=== PATIENT | male | born 1995 | race Hispanic/Latino ===

== ENCOUNTER 2017-06-04 16:35 | Inpatient (IN) | payer SELFPAY ==
[2017-06-04 17:53] LABS: Anion Gap 13 mmol/L (10-20); BUN (Urea Nitrogen) 10 mg/dL (8.9-20.6); Calc. Creatinine Clearance 0 mL/min (70-130); Calcium 9.1 mg/dL (7.8-10.44); Carbon Dioxide 24 mmol/L (22-29); Chloride 105 mmol/L (98-107); Dilantin 21.7 ug/mL (10.0-20.0); Estimated GFR-MDRD Greater than 90; Glucose 97 mg/dL (70-105); Potassium 4.4 mmol/L (3.5-5.1); Sodium 138 mmol/L (136-145)
[2017-06-04] MEDS ORDERED: Acetaminophen 325 MG TAB PO PRN (18:31)
[2017-06-04] MEDS ORDERED: Bisacodyl 5 MG TAB PO PRN (18:31)
[2017-06-04] MEDS ORDERED: Ondansetron HCl/PF 4 MG/2 ML Vial IVP PRN (18:31)
[2017-06-04] MEDS ORDERED: Acetaminophen 650 MG Suppository PR PRN (18:31)
--- NOTE | 2017-06-04 19:28 | RAD ---
TWO VIEW CHEST 06/04/17 HISTORY: Seizure disorder. Shortness of breath and cough. The lungs are clear. heart and mediastinum are unremarkable. IMPRESSION: No acute lung or chest process identified. POS: [facility]
--- NOTE | 2017-06-04 19:44 | HP ---
PRIMARY CARE PHYSICIAN: Dr. Willem Sandoval. CHIEF COMPLAINT: Seizure. HISTORY OF PRESENT ILLNESS: Mr. Hart is a pleasant 21-year-old gentleman who was seen at [facility] on 06/04/2017 following transfer from the Emergency Room in [place]. He ma inly speaks [place]. One of his family members was the hotel dining room cashier for this encounter. He has a history of seizures since age 17. He reportedly has a seizure almost every 4 months. His l ast seizure was 4 months ago. Previously he was on phenytoin, which he got from [place], was using it at 200 mg 2 times a day. He is currently on phenytoin 200 mg 2 times a day, which he purchased in [place]. Last night, he had a seizure while he was walking to the bathroom around 11:00 p.m. Family member re ports that the seizure was tonic-clonic, lasted at least 10 minutes. It is unclear whether he had an y postictal confusion. This was followed by seizures at 2:00 a.m., 5:00 a.m. and 10:00 a.m. He was therefore taken to the emergency room. He denies any chest pain or shortness of breath. He denies any fevers or chills. He denies any neck pain or neck stiffness. REVIEW OF SYSTEMS: The following complete review of systems was negative, unless otherwise mentioned in the HPI or below: Constitutional: Weight loss or gain, ability to conduct usual activities. Skin: Rash, itching. Eyes: Double vision, pain. ENT/Mouth: Nose bleeding, neck stiffness, pain, tenderness. Cardiovascular: Palpitations, dyspnea on exertion, orthopnea. Respiratory: Shortness of breath, wheezing, cough, hemoptysis, fever or night sweats. Gastrointestinal: Poor appetite, abdominal pain, heartburn, nausea, vomiting, constipation, or diarr hea. Genitourinary: Urgency, frequency, dysuria, nocturia. Musculoskeletal: Pain, swelling. Neurologic/Psychiatric: Anxiety, depression. Allergy/Immunologic: Skin rash, bleeding tendency. PAST MEDICAL HISTORY: Significant for seizure disorder. PAST SURGICAL HISTORY: None. SOCIAL HISTORY: The patient smokes 4 or 5 cigarettes a day. He denies alcohol use or recreational d rug use. FAMILY HISTORY: His father had what appears to be intracranial bleed and seizures. ALLERGIES: No known drug allergies. CURRENT MEDICATIONS: Phenytoin 200 mg 2 times a day. PHYSICAL EXAMINATION: GENERAL: On examination, Mr. Hart is awake and alert, not in acute distress. VITAL SIGNS: Blood pressure is 113/73, pulse is 77, he is breathing at rate of 16, and saturating 10 0% on room air. He is afebrile. EYES: No scleral icterus. No conjunctival pallor. ENT: Moist mucosal membranes, no oropharyngeal erythema or exudates. NECK: Supple, nontender, normal range of movement, trachea is midline. RESPIRATORY: Accessory muscles of breathing are not active. Chest wall movements are symmetric bila terally. Lungs are clear to auscultation without wheeze, rhonchi or crepitations. CARDIOVASCULAR: S1 and S2 are heard, regular. Peripheral pulses palpable. No carotid bruit, no per icardial rub. ABDOMEN: Soft, nontender, bowel sounds heard, no hepatomegaly, no splenomegaly. NEUROLOGIC: Cranial nerves II-XII are intact. Deep tendon reflexes are 2+. MUSCULOSKELETAL: Power is 5/5 in all 4 extremities. SKIN: He has an upper lip laceration. PSYCHIATRIC: Normal mood, normal affect, the patient is oriented to person, place, and time. LABORATORY DATA: Mr. Hart's labs and investigations were reviewed. He had a CT scan of the brain, noncontrast, done at [place], which did not reveal any intracranial hemorrhage or mass effect. He has normal electrolytes, normal creatinine, unremarkable liver profile, leukocytosis with 11,600 whit e cells, normal hemoglobin, neutrophil percentage elevated at 85.8%, normal platelet count, urine scr een presumed positive for barbiturates. Phenytoin level done at this emergency room came back elevated at 21.7. ASSESSMENT AND PLAN: Mr. Hart is a pleasant 21-year-old gentleman who was seen at [facility] on 06/04[facility]2017. His problem list includes: 1. Seizures: He has a known history of seizure disorder. He reports that he is taking medications regularly. His phenytoin level is elevated here. However, this was preceded by administration of 10 00 mg of phenytoin at [place] [facility]. They do not have the facilities to check phenytoin l evel at [place]. He also received Keppra. I will increase his phenytoin dose to 300 mg 2 times a day, since the seizures are unlikely to be from phenytoin toxicity. 2. Leukocytosis: No fevers, no signs of infection on review of systems. We will check chest x-ray and urinalysis. 3. Tobacco abuse: The patient counseled regarding tobacco cessation, we will start nicotine replace ment therapy. Neurology Service will be consulted for opinion and help with management. Many thanks for allowing me to participate in your patient's care. Please feel free to contact me wi th any questions or concerns. LEVEL OF RISK: Moderate. LEVEL OF COMPLEXITY: Moderate.
[2017-06-04] MEDS ORDERED: Nicotine 14 MG PATCH TD SCH (20:00)
[2017-06-04 20:17] VITALS: BMI 23.8
[2017-06-04] MEDS ORDERED: FLU VACC QS2017-18 36 mo. & older 0.5 ML SYRINGE IM ONE (21:00)
--- NOTE | 2017-06-05 00:16 | CON ---
DATE OF CONSULTATION: 06/04/2017 CHIEF COMPLAINT: Seizures. HISTORY OF PRESENT ILLNESS: Patient is a 21-year-old right-handed gentleman who was transferred here from another emergency room. His brother was able to help and give me some medical information. The patient has had a history of seizures since teenage years. He had seizure yesterday morning and then he had another seizure at night and at 3:30 this morning and 5 a.m. this morning and a fifth seizure this morning around 10:00 and was taken to the emergency room. He has been on phenytoin 200 mg 2 tablets p.o. b.i.d. and this prescription is being given by Dr. Garza and his last seizure was about 4 months ago. Due to recurrent seizures, family is concerned and brought him to the hospital. He had tongue biting yesterday during his seizure in the afternoon and following that, he fell down and hurt his face on the left side. Patient has generalized tonic clonic seizures and has postictal period with some confusion. PAST MEDICAL HISTORY: Otherwise, healthy except for seizure disorder. PAST SURGICAL HISTORY: None. SOCIAL HISTORY: Lives with his family. He smokes occasionally. No alcohol use or drug use. FAMILY HISTORY: His father has had seizures for a number of years and stopped having seizures about 10 years ago. No other family members have seizures. ALLERGIES: No known drug allergies. CURRENT MEDICATIONS: He takes phenytoin sodium 200 mg b.i.d. REVIEW OF SYSTEMS: General: Positive for facial and tongue injury and injury around his mouth. Dermatologic: Negative for rash or itching. Ophthalmologic : No double vision or vision problems. Neurologic: Positive for seizures. Cardiac: Negative for any chest pain or palpitations. Pulmonary: Negative for shortness of breath. LABORATORY DATA: Sodium 138, potassium 4.4, chloride 105, bicarbonate 24, anion gap 13, BUN 10, creatinine 0.90, glucose 97, calcium 9.1. Toxicology report shows serum phenytoin, which was general phenytoin level which was at 21.7. The rest of the labs were performed at the outside facility and he did have a chest x-ray here which was negative and I have also reviewed some of the available records from the outside hospital and these were in his records from the outside hospital. PHYSICAL EXAMINATION: VITAL SIGNS: His blood pressure was 103/66, temperature 98.6, pulse 66, O2 sats 99. GENERAL APPEARANCE: He has lip injury and evidence of bleeding in the left upper lip and left side of the face appears swollen. He is well-built, well- nourished young man who is very pleasant. CHEST: Clear vesicular breathing. CARDIOVASCULAR: S1, S2 heard, no murmurs. Carotids clear. ABDOMEN: Soft, nontender, no organomegaly noted. NEUROLOGICAL: Higher intellectual functions, normal orientation to time, place , person appropriate conversation and cranial nerves II-XII normal. Normal extraocular movements and normal pupils 2 mm. Fundus exam normal. Normal sensation of face bilaterally. Tongue midline, no atrophy noted. No facial asymmetry is noted. Motor examination: Bulk normal, tone normal, strength 5/5 throughout in the iliopsoas, hamstrings, quadriceps, ankle dorsiflexion, plantar flexion, deltoid, biceps, triceps, wrist extension and flexion bilaterally and deep tendon reflexes 2+ throughout. SENSORY: Normal to touch, pinprick, proprioception, vibration, and temperature bilaterally. CEREBELLAR: Normal fndiks-de-vrdl, zfas-jn-mild. IMPRESSION: Patient is a 21-year-old young man with history of known seizure disorder since a younge age. He has positive family history of seizure disorder in his father. At this time, he comes in with multiple seizures over the last 24-hour period. Etiology of these seizures is not clear to me. Patient had a normal neurological examination. He is being tested for possible infection and other medical issues which can contribute to seizures. His normal seizure frequency is once every 4 months and it is important to optimize his medication regimen and also understand why there is a sudden increase in frequency of seizures. RECOMMENDATIONS: Start patient on Keppra 500 mg b.i.d. and give this patient slightly lower dose of phenytoin. His phenytoin level is at 21, ideally we should try to get a free phenytoin level and at this time, I would like to continue his current dosage and hopefully, we can stabilize this young man. I will request MRI Brain to understand why there is a sudden increase in his seizures. Thank you and I will follow up with you on this case. [facility]
[2017-06-05 05:24] LABS: #Basophils 0.1 thou/uL (0.0-0.2); #Eosinphils 0.2 thou/uL (0.0-0.7); #Lymphocytes 1.9 thou/uL (1.20-3.40); #Monocytes 0.6 thou/uL (0.11-0.59); #Neutrophils 3.8 thou/uL (1.40-6.50); %Basophils 0.9 % (0.0-1.0); %Eosinophils 3.1 % (0.0-10.0); %Monocytes 8.6 % (0.0-10.0); %Neutrophils 58.5 % (42.0-75.0); Hemoglobin 15.3 g/dL (14.0-18.0); Mean Corpuscular HGB CONC 32.9 g/dL (32.0-36.0); Mean Corpuscular Hemoglobin 32.1 pg (27.0-31.0); Mean Corpuscular Volume 97.6 fl (80.0-94.0); Mean Platelet Volume 8.5 fL (7.4-10.4); Platelet Count 163 thou/uL (130-400); RBC Distribution Width 11.5 % (11.5-14.5); Red Blood Cell (RBC) Count 4.77 mill/uL (4.70-6.10); White Blood Cell (WBC) Count 6.4 thou/uL (4.8-10.8)
[2017-06-05 05:47] LABS: Anion Gap 11 mmol/L (10-20); BUN (Urea Nitrogen) 10 mg/dL (8.9-20.6); Calc. Creatinine Clearance 123 mL/min (70-130); Calcium 9.3 mg/dL (7.8-10.44); Carbon Dioxide 26 mmol/L (22-29); Chloride 106 mmol/L (98-107); Estimated GFR-MDRD Greater than 90; Glucose 94 mg/dL (70-105); Potassium 3.6 mmol/L (3.5-5.1); Sodium 139 mmol/L (136-145)
[2017-06-05] MEDS ORDERED: Enoxaparin Sodium 40 MG/0.4 ML SYRINGE SC SCH (09:00)
[2017-06-05 11:22] LABS: Bilirubin Negative (Negative); Blood, Urine Negative (Negative); Clarity CLEAR (Clear); Glucose, Urine (Dipstick) Negative (Negative); Leukocyte Negative (Negative); Nitrite Negative (Negative); Protein, Urine (Dipstick) Negative (Neg-Trace); Urobilinogen 0.2 mg/dL (0.2-1.0); pH, Urine 5.5 (5.0-9.0)
--- NOTE | 2017-06-05 11:44 | MRI ---
MRI BRAIN WITH AND WITHOUT GADOLINIUM CONTRAST: HISTORY: Seizures. FINDINGS: There is no evidence of acute intracranial hemorrhage or infarct. The ventricles appear normal in si ze, shape, and position. There is no mass effect, shift of midline structures, or abnormal areas of contrast enhancement. Hippocampal areas are symmetric. Mucosal thickening and a small amount of fluid are apparent within the left maxillary sinus. IMPRESSION: 1. No acute intracranial abnormalities are demonstrated. 2. Left maxillary sinusitis. POS: [facility]
--- NOTE | 2017-06-05 11:45 | PDOC.PN ---
- Subjective Encounter Start Date: 06/05/17 Encounter Start Time: 07:00 Pt seen for followup re: seizure. No complaints today. No recurrence of seizures. - Objective MAR Reviewed: Yes Vital Signs & Weight: Vital Signs (12 hours) Temp Pulse Resp BP Pulse Ox 06/05/17 11:37 98.2 F 70 16 110/48 L 96 06/05/17 08:00 97.9 F 62 16 98 06/05/17 07:46 97.9 F 62 16 100/57 L 98 06/05/17 04:00 97.7 F 63 16 98/52 L 96 06/04/17 23:50 97.9 F 63 16 99/54 L 96 Result Diagrams: 06/05/17 04:56 06/05/17 04:56 EKG Reviewed by me: Yes (Tele: NSR) Phys Exam - Physical Examination Constitutional: NAD HEENT: moist MMs Neck: supple Respiratory: clear to auscultation bilateral Cardiovascular: RRR Gastrointestinal: soft Neurological: non-focal, normal sensation, moves all 4 limbs Psychiatric: normal affect Deviation from normal: upper lip laceration Dx/Plan (1) Seizure Code(s): R56.9 - UNSPECIFIED CONVULSIONS Status: Acute (2) Tobacco abuse Code(s): Z72.0 - TOBACCO USE Status: Chronic - Plan plan discussed w/ family * . Phenytoin dose increased yesterday. Neurology consult pending. Continue nicotine replacement therapy. Review of Systems - Review of Systems Respiratory: negative: Cough, Dry, Shortness of Breath, Hemoptysis, SOB with Excertion, Pleuritic Pain, Sputum, Wheezing Cardiovascular: negative: chest pain, palpitations, orthopnea, paroxysmal nocturnal dyspnea, edema, light headedness, other Neurological: negative: Weakness, Numbness, Incoordination, Change in Speech, Confusion, Seizures - Medications/Allergies Allergies/Adverse Reactions: Allergies Allergy/AdvReac Type Severity Reaction Status Date / Time No Known Drug Allergies Allergy Verified 06/04/17 18:31 Medications: Current Medications Acetaminophen (Tylenol) 650 mg PO Q4H PRN PRN Reason: Headache/Fever or Pain Acetaminophen (Tylenol) 650 mg MO Q4H PRN PRN Reason: Headache/Fever or Pain Bisacodyl (Dulcolax) 10 mg PO DAILYPRN PRN PRN Reason: Constipation Enoxaparin Sodium (Lovenox) 40 mg SC 0900 [facility] Last Admin: 06/05/17 08:01 Dose: 40 mg Levetiracetam 500 mg/ Device 100 mls @ 200 mls/hr IVPB BID [facility] Last Admin: 06/05/17 08:02 Dose: 100 mls Nicotine (Nicoderm Patch) 14 mg TD Q24HR [facility] Last Admin: 06/04/17 21:48 Dose: Not Given Ondansetron HCl (Zofran) 4 mg IVP Q6H PRN PRN Reason: Nausea/Vomiting Phenytoin Sodium (Dilantin Er) 200 mg PO BID [facility] Last Admin: 06/05/17 08:01 Dose: 200 mg
--- NOTE | 2017-06-05 12:16 | PRG ---
DATE OF SERVICE: 06/05/2017 CHIEF COMPLAINT: Seizures. INTERVAL HISTORY: The patient has remained seizure free since yesterday and has been on both Keppra and phenytoin sodium oral. At this time, he is doing well and no sequelae of seizures such as headac hes. Current reports MRI of the brain, no acute intracranial abnormalities, left maxillary sinusitis . LABORATORY REPORTS: His white count is 6.7, hemoglobin 15.3, hematocrit 46.6 and platelets 163. Sod ium 139, potassium 3.6, chloride 106, bicarbonate 26, BUN 10 and creatinine 0.95. PHYSICAL EXAMINATION: VITAL SIGNS: His blood pressure was 110/48, temperature 98.2, pulse 70, respiratory rate 16 and oxyg enation 96%. GENERAL: A well-built, well-nourished young man, lying comfortably in bed. NEUROLOGIC: Higher intellectual functions. Normal orientation to time, place and person and his scrap baler nial nerve examination, normal extraocular movements. Normal sensation of face. No facial asymmetry . Tongue is midline. Motor examination: Bulk normal, tone normal. Strength is 5/5 throughout. Ce rebellar: [id number] normal. IMPRESSION: Patient is a 21-year-old young man who is admitted with multiple seizures. At this time , he seems to be more stable and no further seizures are noted. MRI brain is negative for any lesion s. RECOMMENDATIONS: 1. Please continue Keppra and Dilantin for seizure prophylaxis. 2. Okay to discharge the patient home from a neurological standpoint. 3. He will need Neurology followup as outpatient for further care.
[2017-06-05 15:39] VITALS: BP 101/42; TEMP 98.3
[2017-06-05] MEDS ORDERED: levETIRAcetam 500 MG TAB PO SCH (21:00)
--- NOTE | 2017-06-05 21:55 | DIS ---
PRIMARY CARE PHYSICIAN: Dr. Willem Sandoval. DATE OF ADMISSION: 06/04/2017 DATE OF DISCHARGE: 06/05/2017 DISCHARGE DIAGNOSIS: Seizure. CONDITION OF PATIENT ON THE DAY OF DISCHARGE: Stable. I assessed Mr. Hart on the day of discharge. He denies any chest pain or shortness of breath. No recurrence of seizures. Vital signs are stabl e. S1 and S2 are heard, regular. Lungs are clear to auscultation bilaterally. HOSPITAL COURSE: Mr. Hart is a pleasant 21-year-old gentleman, who was admitted to [facility] on 06/04/2017 for seizures. He was seen by Neurology Service. He did not have a r ecurrence of seizures in the hospital. MRI of the brain showed left maxillary sinusitis and no acute intracranial abnormalities. He has been started on Keppra 500 mg 2 times a day in addition to his h ome dose of phenytoin 200 mg 2 times a day. He is advised to follow up with his primary care provide r in 3-5 days. He has also been advised not to drive or use heavy machinery until cleared [facility]. On the day of discharge, he has a white count of 6400, hemoglobin 15.3, platelet count 163 and a norm al Chem-7. Urinalysis during this hospitalization was normal. CONSULTATIONS DURING THIS HOSPITALIZATION: Neurology, Dr. Keesha Joiner. Many thanks for allowing me to participate in your patient's care. Please feel free to contact me wi th any questions or concerns. DISCHARGE DESTINATION: Home. TOTAL AMOUNT OF TIME SPENT COORDINATING THIS DISCHARGE: 32 minutes.
== END 2017-06-05 16:32 | disposition home or self-care (01) | DRG 101 ==
LOC: ERS 16:35 → 2SE 18:28
PROVIDERS: ADMIT Internal Medicine; ATTEND Internal Medicine
DX: G40.909 Epilepsy, unspecified, not intractable, without status epilepticus (principal); F17.210 Nicotine dependence, cigarettes, uncomplicated; Z23 Encounter for immunization
CPT/HCPCS: 36415; 70553; 71046; 80048; 80185; 81003; 85025; 87040; 87086; 90471; 90682; G0008; J1650; J1953; Q2036